=== PATIENT | female | born 1940 | race Caucasian/White ===

== ENCOUNTER 2019-03-14 22:51 | Emergency (ER) | payer MEDICARE ==
[2019-03-14] MEDS ORDERED: NS 0.9% 1000 ML** 1,000 ML IV ONE (23:12)
[2019-03-14] MEDS ORDERED: Ondansetron INJ* 2 MG/ML VIAL IV ONE (23:13)
[2019-03-14] MEDS ORDERED: Meclizine TAB* 12.5 MG PO ONE (23:14)
--- NOTE | 2019-03-14 23:20 | ED ---
Dizziness - HPI Summary HPI Summary: The patient is a 78 year old F brought in by EMS to [facility] with a chief complaint of a possible allergic reaction and dizziness due to starting Ramipril. She reports that she took Ramipril this morning and started feeling dizzy while resting tonight. She reports reading a book and watching tv when the onset began. She stated that her vision became wavy and she started having heat waves that went from her throat into her face. Prior to calling EMS she had fatigue, dizziness that made the room spin, and nausea that was intermittent. She reports having an episode of nausea during her ambulance ride to [facility]. She also reports having pain from her throat that radiates into her jaw and rates it a 6/10 in severity. She denies vomiting and chest pain. She reports that standing and movements are aggravating, but rest and closing her eyes alleviates the symptoms. 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 She had similar symptoms 9 years ago. - History Of Current Complaint Chief Complaint: EDAllergicReaction Stated Complaint: MED INTERACTION PER EMS Time Seen by Provider: 03/14/19 23:01 Hx Obtained From: Patient Onset/Duration: Still Present - started tonight while at rest Timing: Constant - nausea lasts couple of minutes at a time Severity Initially: Moderate Severity Currently: Moderate Character: Room Spinning, Dizzy Aggravating Factor(s): Supine To Erect, Other - movement Alleviating Factor(s): Rest, Closing Eyes Associated Signs And Symptoms: Positive: Nausea, Visual Changes - wavy, room spinning, Change In Medication - started Rampiril today, Other: - POSITIVE: fatigue, pain that radiates from her throat to her jaw. Negative: Vomiting, Chest Pain - Allergies/Home Medications Allergies/Adverse Reactions: Allergies Allergy/AdvReac Type Severity Reaction Status Date / Time Penicillins Allergy Rash Verified 03/14/19 22:54 PMH/Surg Hx/FS Hx/Imm Hx Previously Healthy: No Endocrine/Hematology History: Denies: Hx Diabetes Cardiovascular History: Reports: Other Cardiovascular Problems/Disorders - leak in her aorta and mitral valve EENT History: Denies: Hx Deafness Infectious Disease History: No Infectious Disease History: Denies: Traveled Outside the [place] in Last 30 Days - Family History Known Family History: Positive: Cardiac Disease - Father and brother both had heart attacks at 38 y/o. - Social History Alcohol Use: None Hx Substance Use: No Substance Use Type: Reports: None Hx Tobacco Use: Yes Smoking Status (MU): Former Smoker Review of Systems Positive: Fatigue Positive: Other - POSITIVE: wavy vision, room spinning Positive: Sore Throat - radiates into jaw Negative: Chest Pain Positive: Nausea. Negative: Vomiting Neurological: Other - dizziness All Other Systems Reviewed And Are Negative: Yes Physical Exam - Summary Physical Exam Summary: VITAL SIGNS: Reviewed. GENERAL: Patient is a well-developed and nourished female who is lying comfortable in the stretcher. Patient is not in any acute respiratory distress. Stood up pt, felt dizzy and wobbly. On the stretcher her symptoms were less severe HEAD AND FACE: No signs of trauma. No ecchymosis, hematomas or skull depressions. No sinus tenderness. EYES: PERRLA, EOMI x 2, No injected conjunctiva, no nystagmus. EARS: Hearing grossly intact. Ear canals and tympanic membranes are within normal limits. MOUTH: Oropharynx within normal limits. NECK: Supple, trachea is midline, no adenopathy, no JVD, no carotid bruit, no c- spine tenderness, neck with full ROM CHEST: Symmetric, no tenderness at palpation LUNGS: Clear to auscultation bilaterally. No wheezing or crackles. CVS: Regular rate and rhythm, S1 and S2 present, no murmurs or gallops appreciated. ABDOMEN: Soft, non-tender. No signs of distention. No rebound no guarding, and no masses palpated. Bowel sounds are normal. EXTREMITIES: FROM in all major joints, no edema, no cyanosis or clubbing. NEURO: Alert and oriented x 3. No acute neurological deficits. Speech is normal and follows commands. Normal coordination finger to nose bilaterally is normal SKIN: Dry and warm Triage Information Reviewed: Yes Vital Signs On Initial Exam: Initial Vitals Temp Pulse Resp BP Pulse Ox 99 F 101 22 154/91 95 03/14/19 22:54 03/14/19 22:54 03/14/19 22:54 03/14/19 22:54 03/14/19 22:54 Vital Signs Reviewed: Yes Diagnostics - Vital Signs Vital Signs Temp Pulse Resp BP Pulse Ox 03/14/19 22:54 99 F 101 22 154/91 95 - Laboratory Result Diagrams: 03/14/19 23:21 03/14/19 23:21 Lab Statement: Any lab studies that have been ordered have been reviewed, and results considered in the medical decision making process. - CT Brain CT CT Interpretation Completed By: Radiologist Summary of CT Findings: 1. 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 and the inferior medial aspect of the left frontal lobe. 2. No acute intracranial hemorrhage. No intracranial mass or obstructive. hydrocephalus. ED Physician has reviewed this report. - EKG 2302 Cardiac Rate: NL - 94 BPM EKG Rhythm: Sinus Rhythm ST Segment: Normal Ectopy: None Summary of EKG Findings: sinus rhythm of 94 BPM, normal axis, normal interval, and no ischemic changes Re-Evaluation - Re-Evaluation First Eval Re-Evaluation Time: 00:43 Change: Improved Comment: Pt feels better after medication and was able to walk in the emergency room. She will be discharged home with antivert and instructions to follow up with her PCP in 2-3 days. She was Dx with benign positional vertigo. Dizzy Course/Dx - Course Course Of Treatment: The patient is a 78 year old F brought in by EMS to [facility] with a chief complaint of a possible allergic reaction and dizziness due to starting Ramipril. She reports that she took Ramipril this morning and started feeling dizzy while resting tonight. She reports reading a book and watching tv when the onset began. Upon her PE the pt had Normal coordination finger to nose bilaterally is normal but when the pt stood up, she felt dizzy and wobbly. On the stretcher her symptoms were less severe. She had an EKG conducted which shows a sinus rhythm of 94 BPM, normal axis, normal interval, and no ischemic changes. She also received a brain CT which found 1. Area of cystic encephalomalacia involving the right anterior frontal lobe and the inferior medial aspect of the left frontal lobe. 2. No acute intracranial hemorrhage. No intracranial mass or obstructive hydrocephalus. This CT was similar to her previous brain CTs and showed no acute changes. She received the following medications during her ED course: Ns 0.9% 1000 mls, Antivert 12.5 mg tab, Zofran 8 mg inj. She was able to walk around the emergency room after given medication. Pt will be discharged with antivert and instructed to follow up with her PCP in 2 days with a Dx of benign positional vertigo. - Diagnoses Provider Diagnoses: Benign positional vertigo Discharge - Sign-Out/Discharge Documenting (check all that apply): Patient Departure - discharge Patient Received Moderate/Deep Sedation with Procedure: No - Discharge Plan Condition: Stable Disposition: HOME Prescriptions: Meclizine TAB* [Antivert 12.5 TAB*] 12.5 mg PO TID PRN #30 tab PRN Reason: Dizziness Patient Education Materials: Benign Paroxysmal Positional Vertigo (ED) Referrals: Alix Eldridge DO [Primary Care Provider] - 2 Days Additional Instructions: Please follow up with you primary care physician in 2-3 days and return to the emergency department with any new or worsening symptoms. - Billing Disposition and Condition Condition: STABLE Disposition: Home - Attestation Statements Document Initiated by Viviibe: Yes Documenting Scribe: Maico Mitchell Provider For Whom Jim is Documenting (Include Credential): Elsa Pearson MD Scribe Attestation: Maico Hatch, scribed for Elsa Pearson MD on 03/15/19 at 0454. Scribe Documentation Reviewed: Yes Provider Attestation: The documentation as recorded by the Maico mike accurately reflects the service I personally performed and the decisions made by Alba rueda MD Status of Scribe Document: Viewed
[2019-03-14 23:39] LABS: ABS Basophils 0.1 10^3/ul (0-0.2); ABS Eosinophils 0.2 10^3/ul (0-0.6); ABS Lymphocytes 1.7 10^3/ul (1.0-4.8); ABS Monocytes 0.6 10^3/ul (0-0.8); Eosinophil % 2.7 %; Hematocrit 41 % (35-47); Hemoglobin 13.8 g/dL (12.0-16.0); Mean Corpuscular HGB Conc 34 g/dL (31-36); Mean Corpuscular Hemoglobin 29 pg (27-31); Mean Corpuscular Volume 87 fL (80-97); Mean Platelet Volume 9.2 fL (7.4-10.4); Nucleated Red Blood Cells % 0.1; Platelet Count 260 10^3/uL (150-450); Red Cell Distribution Width 13 % (10-15); White Blood Count 6.6 10^3/uL (3.5-10.8)
[2019-03-14 23:58] LABS: Activated Partial Thrombo Time 30.9 seconds (26.0-38.0); Albumin 4.1 g/dL (3.2-5.2); Albumin/Globulin Ratio 2.1 (1-3); BUN/Creatinine Ratio 35.1 (8-20); EGFR African American 67.2 (>60); EGFR Non-African American 55.5 (>60); INR 0.88 (0.82-1.09); Magnesium 2.3 mg/dL (1.9-2.7); Potassium 4.2 mmol/L (3.5-5.0); Total Bilirubin 0.3 mg/dL (0.2-1.0); Total Protein 6.1 g/dL (6.4-8.9)
[2019-03-15 00:58] VITALS: BP 157/73
== END 2019-03-15 00:58 | disposition home or self-care (01) ==
LOC: ED 22:51
DX: H81.10 Benign paroxysmal vertigo, unspecified ear (principal); Z87.891 Personal history of nicotine dependence; J02.9 Acute pharyngitis, unspecified; R11.0 Nausea; R53.83 Other fatigue; Z88.0 Allergy status to penicillin
CPT/HCPCS: 36415; 70450; 80053; 83735; 84484; 85025; 85610; 85730; 93005; 96360; 96374; 99283; A9270-GY; J2405